=== PATIENT | male | born 1930 | race Caucasian/White ===

== ENCOUNTER 2017-02-09 08:35 | Inpatient (IN) | payer OTHER ==
[~2017-02-09] VITALS: Ht 180.3 cm; Wt 56.7 kg
--- NOTE | 2017-02-09 07:10 | NUR ---
OPENING NOTES RECEIVED REPORT FROM DAY SHIFT NURSE AT BEDSIDE. IV PATENT, FLUIDS RUNNING. NO SIGNS OR SYMPTOMS OF DISTRESS NOTED. FAMILY AT BEDSIDE. BED IN LOWEST POSITION, CALL LIGHT WITHIN REACH.
--- NOTE | 2017-02-09 07:10 | NUR ---
OPENING NOTES RE[facility] PATENT IV WITH FLUIDS RUNNING. PATIENT SHOWED NO SIGNS OR SYMPTOMS OF DISTRESS. FAMILY AT BEDSIDE. BED IN LOWEST POSITION, CALL LIGHT WITHIN REACH. Addendum: 02/10/17 at 0033 by Hilda Gross RN MEANT TO PUT [phone]
[2017-02-09 08:35] VITALS: BP 92/59; PULSE 67; RESP 19; TEMP 98.5; O2SAT 99
--- NOTE | 2017-02-09 08:35 | NUR ---
BROUGHT IMMEDIATELY BACK TO BED #6 AND TRIAGED. REPORT GIVEN TO MONICA
[2017-02-09] MEDS ORDERED: ASPIRIN 81 MG TAB.CHEW PO ONE (08:45)
--- NOTE | 2017-02-09 08:51 | NUR ---
c/o left chest pain, sharp,intermittent, non-radiating, 8/10 since 6am this morning, [id number], denies sob.no distress noted.
--- NOTE | 2017-02-09 08:51 | NUR ---
Placed on electrotype caster, blood pressure machine and pulse oximeter. To gown for exam. Side rails up.
--- NOTE | 2017-02-09 08:52 | NUR ---
ER at bedside examining patient.
--- NOTE | 2017-02-09 08:54 | NUR ---
# 20 gauge angiocath placed to LAC. Use of asceptic technique. Opsite placed over site. Blood return noted. Blood for lab drawn from site. Flushed with 10 cc of normal saline. No evidence of infiltration noted. Patient tolerated well.
[2017-02-09 08:58] LABS: BASOPHILS # (AUTO) 0.3 K/uL (0.0-0.2); BASOPHILS % (AUTO) 1.9 % (0.0-2.0); EOSINOPHILS % (AUTO) 0.3 % (0.0-4.0); HEMOGLOBIN 10.7 g/dL (14.0-18.0); LYMPHOCYTES # (AUTO) 1.2 K/uL (1.0-5.5); LYMPHOCYTES % (AUTO) 7.6 % (20.5-51.5); MEAN CORPUSCULAR HEMOGLOBIN 34 pg (27-31); MEAN CORPUSCULAR HGB CONC 35 % (32-36); MEAN CORPUSCULAR VOLUME 99 fL (79.0-98.0); MONOCYTES # (AUTO) 0.9 K/uL (0.0-1.0); MONOCYTES % (AUTO) 5.9 % (1.7-9.3); NEUTROPHILS % (AUTO) 84.3 % (40.0-70.0); PLATELET COUNT (AUTO) 190 K/uL (130-430); RED BLOOD CELL COUNT(AUTO) 3.12 MIL/uL (4.2-6.2); RED CELL DISTRIBUTION WIDTH 12.4 % (9.0-15.0); WHITE BLOOD COUNT (AUTO) 15.4 K/uL (4.8-10.8)
[2017-02-09] MEDS ORDERED: D5/0.45 NS 1,000 ML IV ONE (09:00)
[2017-02-09] MEDS ORDERED: ASPIRIN 81 MG TAB.CHEW ONE (09:04)
[2017-02-09 09:08] LABS: ANION GAP 6 (5-15); CALCIUM 9.1 mg/dL (8.4-11.0); CHLORIDE 103 mmol/L (98-107); CREATININE 1.48 mg/dL (0.55-1.30); GLUCOSE 105 mg/dL (70-99); POTASSIUM 3.8 mmol/L (3.5-5.1); SODIUM SERUM 138 mmol/L (136-145); UREA NITROGEN, BLOOD 24 mg/dL (8-21)
--- NOTE | 2017-02-09 09:10 | NUR ---
NOTES PATIENT RESTING COMFORTABLY. PATIENT DENIES PAIN. IV SALINE LOCK. NO SIGNS OR SYMPTOMS OF DISTRESS NOTED. PLAN OF CARE DISCUSSED. BED IN LOWEST POSITION, CALL LIGHT WITHIN REACH. WILL CONTINUE TO MONITOR. Addendum: 02/10/17 at 0033 by Hilda Gross RN MEANT TO PUT [phone]
[2017-02-09 09:13] LABS: ALANINE AMINOTRANSFERASE 22 U/L (12-78); ALBUMIN 3.8 g/dL (3.4-4.8); ASPARTATE AMINOTRANSFERASE 18 U/L (10-37); TOTAL BILIRUBIN 0.7 mg/dL (0.0-1.0); TOTAL PROTEIN, SERUM 7.5 g/dL (6.4-8.3)
--- NOTE | 2017-02-09 09:43 | NUR ---
resting in bed,denies any pain and disconfort.
--- NOTE | 2017-02-09 10:04 | NUR ---
pt can't recall his home medication, unable to do medication reconcil at this time.
--- NOTE | 2017-02-09 10:04 | NUR ---
admit orders received from Dr Vigil
--- NOTE | 2017-02-09 10:05 | NUR ---
Patient will be admitted to care of Dr caldwell. Admitted to unit. Will go to room . Belongings list completed. Summary report printed. Report given to .
--- NOTE | 2017-02-09 10:22 | NUR ---
ADMISSION NOTE Received patient from ER via gurney. Patient admitted with diagnosis of Chest Pain. Patient is awake, alert, oriented X 4. Patient oriented to hospital room, call light, toileting, pain management and safety-teach back done. Patient informed that Angel will be his nurse and that their room number is 112B. Personal belongings checked and Belongings List documented. Call light within reach.
[2017-02-09 10:32] VITALS: BP 110/69; PULSE 62; RESP 18; TEMP 97.4; O2SAT 100
--- NOTE | 2017-02-09 10:36 | NUR ---
CONSULT C ARDIO CHEST PAIN DR CEDENO [phone] S/[facility] OFF[facility] @ [phone]
--- NOTE | 2017-02-09 11:10 | NUR ---
NOTES PATIENT SLEEPING. VISIBLE RISE AND FALL OF THE CHEST NOTED. NO SIGNS OR SYMPTOMS OF DISTRESS NOTED. BED IN LOWEST POSITION, CALL LIGHT WITHIN REACH. WILL CONTINUE TO MONITOR. Addendum: 02/10/17 at 0032 by Hilda Gross RN WRONG TIME MEANT TO PUT [phone]
[2017-02-09] MEDS ORDERED: NIAC250T18 PO (13:49)
[2017-02-09] MEDS ORDERED: ALLO100T PO (13:49)
[2017-02-09] MEDS ORDERED: ASPI-859 PO (13:49)
[2017-02-09] MEDS ORDERED: BENA5TAB2 PO (13:49)
[2017-02-09] MEDS ORDERED: CYAN250014 PO (13:49)
[2017-02-09] MEDS ORDERED: VIT1CAPS27 PO (13:49)
[2017-02-09] MEDS ORDERED: FERR-57 PO (13:49)
[2017-02-09] MEDS ORDERED: SIMV80TA2 PO (13:49)
[2017-02-09] MEDS ORDERED: AMIO200T2 PO (13:49)
[2017-02-09] MEDS ORDERED: CHOL200010 PO (13:49)
[2017-02-09] MEDS ORDERED: OMEG100037 PO (13:49)
[2017-02-09] MEDS ORDERED: MAGN250T31 PO (13:49)
[2017-02-09] MEDS ORDERED: FOLI0.8T PO (13:49)
--- NOTE | 2017-02-09 14:00 | NUR ---
NOTES PT IN BED, NO C/O PAIN, NO SOB, FAMILY AT BEDSIDE.
--- NOTE | 2017-02-09 16:05 | NUR ---
PT IN BED, FAMILY AT BEDSIDE, NO C/O CHEST PAIN THIS TIME, BUT ATTENDED TO PT EARLIER FOR C/O OF INTERMITTENT SUDDEN CHEST PAIN WHICH LAST FOR ONLY FEW SECONDS. WILL CONT TO MONITOR. OTHERWISE PT IS STABLE.
[2017-02-09 16:31] VITALS: BP 146/89; PULSE 62; RESP 18; TEMP 98.5; O2SAT 97
--- NOTE | 2017-02-09 17:06 | NUR ---
Notes Dr. Guido has been made aware of patient's complaint of intermittent chest pain. No new orders given. Dr. Guido stated he will see patient next.
--- NOTE | 2017-02-09 17:57 | NUR ---
NOTES - SPOKE WITH DR CORTES ALVAREZ PT'S MED REC, AND C/O CHEST PAIN, ASK MD IF HE WOULD CONSIDER NITRO, MD SAID HE WILL DO IT IN THE COMPUTER, NO NEW ORDER GIVEN.
[2017-02-09] MEDS ORDERED: MORPHINE 2 MG/ML INJ. SYRINGE IVP PRN (18:00)
[2017-02-09] MEDS ORDERED: ALLOPURINOL 100 MG TABLET (ZYLOPRIM) PO PRN (18:00)
[2017-02-09] MEDS ORDERED: MORPHINE 4 MG/ML INJ. SYRINGE IVP PRN (18:00)
[2017-02-09] MEDS ORDERED: ACETAMINOPHEN 325 MG TABLET PO PRN (18:00)
--- NOTE | 2017-02-09 18:50 | NUR ---
READING INTERVENTION TEACHER SEEN PT. FAMILY AT BEDSIDE. PT IS STABLE.
--- NOTE | 2017-02-09 19:10 | NUR ---
OPENING NOTES RECEIVED REPORT FROM DAYSHIFT NURSE AT BEDSIDE. PATENT IV WITH FLUIDS RUNNING. PATIENT SHOWED NO SIGNS OR SYMPTOMS OF DISTRESS. FAMILY AT BEDSIDE. BED IN LOWEST POSITION, CALL LIGHT WITHIN REACH.
[2017-02-09 20:00] VITALS: BP 146/69; PULSE 60; RESP 22; TEMP 99.3; O2SAT 99
[2017-02-09] MEDS ORDERED: KETOROLAC TROMETHAMINE 15 MG VIAL IVP SCH (20:00)
--- NOTE | 2017-02-09 20:15 | NUR ---
NOTES ORDERED FLUIDS D/C. FLUIDS D/C AT THIS TIME.
[2017-02-09] MEDS ORDERED: SIMVASTATIN 40 MG TABLET PO SCH (21:00)
--- NOTE | 2017-02-09 21:10 | NUR ---
NOTES PATIENT RESTING COMFORTABLY. PATIENT DENIES PAIN. IV SALINE LOCK. NO SIGNS OR SYMPTOMS OF DISTRESS NOTED. PLAN OF CARE DISCUSSED. BED IN LOWEST POSITION, CALL LIGHT WITHIN REACH. WILL CONTINUE TO MONITOR.
[2017-02-09] MEDS ORDERED: KETOROLAC TROMETHAMINE 15 MG VIAL IVP PRN (22:15)
--- NOTE | 2017-02-09 23:10 | NUR ---
NOTES PATIENT SLEEPING. VISIBLE RISE AND FALL OF THE CHEST NOTED. NO SIGNS OR SYMPTOMS OF DISTRESS NOTED. BED IN LOWEST POSITION, CALL LIGHT WITHIN REACH. WILL CONTINUE TO MONITOR.
[2017-02-10] VITALS: BP 156/71; PULSE 60; RESP 20; TEMP 99.6; O2SAT 97
--- NOTE | 2017-02-10 01:10 | NUR ---
NOTES PATIENT SLEEPING COMFORTABLY. VISIBLE RISE AND FALL OF THE CHEST NOTED. NO SIGNS OR SYMPTOMS OF DISTRESS NOTED. BED IS IN LOWEST POSITION, CALL LIGHT WITHIN REACH. WILL CONTINUE TO MONITOR.
--- NOTE | 2017-02-10 03:10 | NUR ---
NOTES PATIENT IS RESTING, SITTING UP IN BED. PATIENT DENIES PAIN. NO SIGNS OR SYMPTOMS OF DISTRESS NOTED. BED IN LOWEST POSITION, CALL LIGHT WITHIN REACH. WILL CONTINUE TO MONITOR.
[2017-02-10 03:32] LABS: ANION GAP 7 (5-15); CALCIUM 8.8 mg/dL (8.4-11.0); CHLORIDE 104 mmol/L (98-107); CREATININE 1.38 mg/dL (0.55-1.30); GLUCOSE 107 mg/dL (70-99); POTASSIUM 3.8 mmol/L (3.5-5.1); SODIUM SERUM 140 mmol/L (136-145); UREA NITROGEN, BLOOD 22 mg/dL (8-21)
[2017-02-10 04:00] VITALS: BP 131/70; PULSE 53; RESP 20; TEMP 96.8; O2SAT 96
--- NOTE | 2017-02-10 05:10 | NUR ---
NOTES PATIENT IS SLEEPING PEACEFULLY. VISIBLE RISE AND FALL OF THE CHEST NOTED. NO SIGNS OR SYMPTOMS OF DISTRESS NOTED. BED IN LOWEST POSITION, CALL LIGHT WITHIN REACH. WILL CONTINUE TO MONITOR.
[2017-02-10 06:21] LABS: BASOPHILS % (AUTO) 0.1 % (0.0-2.0); EOSINOPHILS # (AUTO) 0.2 K/uL (0.0-0.4); HEMOGLOBIN 9.1 g/dL (14.0-18.0); LYMPHOCYTES # (AUTO) 1.6 K/uL (1.0-5.5); LYMPHOCYTES % (AUTO) 16.9 % (20.5-51.5); MEAN CORPUSCULAR HEMOGLOBIN 34 pg (27-31); MEAN CORPUSCULAR HGB CONC 34 % (32-36); MEAN CORPUSCULAR VOLUME 100 fL (79.0-98.0); MONOCYTES # (AUTO) 0.9 K/uL (0.0-1.0); MONOCYTES % (AUTO) 9.3 % (1.7-9.3); NEUTROPHILS # (AUTO) 6.7 K/uL (1.8-7.7); NEUTROPHILS % (AUTO) 71.7 % (40.0-70.0); PLATELET COUNT (AUTO) 158 K/uL (130-430); RED CELL DISTRIBUTION WIDTH 12.3 % (9.0-15.0); WHITE BLOOD COUNT (AUTO) 9.4 K/uL (4.8-10.8)
--- NOTE | 2017-02-10 06:42 | NUR ---
CLOSING NOTES PATIENT IS SLEEPING COMFORTABLY, NO SIGNS OR SYMPTOMS OF DISTRESS NOTED. VISIBLE RISE AND FALL OF THE CHEST. BED IN LOWEST POSITION, CALL LIGHT WITHIN REACH. WILL ENDORSE CARE TO DAY SHIFT NURSE.
--- NOTE | 2017-02-10 07:45 | NUR ---
INITIAL NOTE PATIENT IS RESTING COMFORTABLY IN BED, NO COMPLAINTS OF ANY PAIN OR DISCOMFORT, ASSESSMENT COMPLETE, 20 GAUGE, IV SITE NOTED OF LEFT AC, EDUCATED PATIENT ON USE OF CALL KELSEY, PATIENT VERBALIZED UNDERSTANDING, BED IN LOWEST POSITION, CALL KELSEY IN PATIENT'S HAND, TWO SIDE RAILS UP, WILL CONTINUE TO MONITOR PATIENT.
[2017-02-10 08:00] VITALS: BP 161/72; PULSE 63; RESP 18; TEMP 98; O2SAT 97
[2017-02-10] MEDS ORDERED: NIACIN 250 MG TABLET PO SCH (09:00)
[2017-02-10] MEDS ORDERED: ASPIRIN 325 MG TABLET (ECOTRIN) PO SCH (09:00)
[2017-02-10] MEDS ORDERED: NIACIN 500 MG CAPSULE.SA PO SCH (09:00)
[2017-02-10] MEDS ORDERED: FERROUS SULFATE 325 MG TABLET.DR PO SCH (09:00)
[2017-02-10] MEDS ORDERED: BENAZEPRIL HCL 10 MG TABLET (LOTENSIN) PO SCH (09:00)
[2017-02-10] MEDS ORDERED: AMIODARONE HCL 200 MG TABLET PO SCH (09:00)
[2017-02-10] MEDS ORDERED: ASPIRIN 81 MG TABLET(ECOTRIN) PO SCH (09:00)
[2017-02-10] MEDS ORDERED: IOHEXOL 350 mgI/mL, 150 ML INFUS..BTL IV ONE (09:29)
--- NOTE | 2017-02-10 09:30 | NUR ---
MEDICATION PASS GAVE PATIENT MORNING MEDICATIONS, EDUCATED PATIENT ON POTENTIAL SIDE EFFECTS, PATIENT VERBALIZED UNDERSTANDING, CALL KELSEY LEFT IN PATIENT' HAND, BED IN LOWEST POSITION, TWO SIDE RAILS UP, WILL CONTINUE TO MONITOR PATIENT
--- NOTE | 2017-02-10 09:30 | NUR ---
CT SCAN PATIENT IS OFF UNIT FOR CT SCAN, PATIENT IN STABLE CONDITION
--- NOTE | 2017-02-10 09:50 | NUR ---
PATIENT BACK ON UNIT PATIENT IS BACK FROM CT SCAN, PATIENT IS STABLE, FAMILY AT BEDSIDE, BED IN LOWEST POSITION, CALL KELSEY WITHIN REACH, WILL CONTINUE TO MONITOR
--- NOTE | 2017-02-10 10:30 | NUR ---
DR KOLB PAGED REGARDING DDIMER AND CTA RESULTS
--- NOTE | 2017-02-10 11:18 | NUR ---
DR KOLB CALL BACK RESULTS GIVEN FOR DDIMER AND CTA, DR KOLB ORDERED STAT VENOUS DOPPLER OF THE BILATERAL LOWER EXTREMITIES, NOTIFIED CHIROPRACTOR SOLE PRACTITIONER OF NEW ORDERS, WILL FOLLOW UP.
--- NOTE | 2017-02-10 11:30 | NUR ---
RN ROUNDS PATIENT IS SITTING UP IN BED, FAMILY IS AT BEDSIDE, NO COMPLAINTS OF PAIN OR DISCOMFORT, INSTRUCTED PATIENT TO USE CALL KELSEY IF ASSISTANCE IS NEEDED, PATIENT VERBALIZED UNDERSTANDING, BED IN LOWEST POSITION, CALL KELSEY WITHIN PATIENT'S REACH, TWO SIDE RAILS UP, FALL PRECAUTIONS IN PLACE, WILL CONTINUE TO MONITOR
[2017-02-10 12:00] VITALS: BP 129/56; PULSE 60; RESP 18; TEMP 97.3; O2SAT 98
[2017-02-10 13:25] VITALS: Ht 180.3 cm; Wt 56.7 kg
--- NOTE | 2017-02-10 13:51 | NUR ---
VENOUS DOPPLER PATIENT RECEIVING VENOUS DOPPLER AT THIS TIME, TOLERATING WELL AT THIS TIME, WILL CONTINUE TO MONITOR.
--- NOTE | 2017-02-10 14:00 | NUR ---
RN ROUNDS PATIENT IS SITTING UP IN CHAIR, FAMILY MEMBERS AT BEDSIDE, PATIENT DENIES ANY PAIN OR DISCOMFORT, INSTRUCTED PATIENT IF ASSISTANCE IS NEEDED TO USE CALL KELSEY, PATIENT VERBALIZED UNDERSTANDING, FALL PRECAUTIONS IN PLACE, WILL CONTINUE TO MONITOR PATIENT.
--- NOTE | 2017-02-10 14:45 | NUR ---
Dr. Musa Vigil paged to inform him of venous doppler results, patient made aware that Dr. Vigil is paged.
--- NOTE | 2017-02-10 15:45 | NUR ---
D/C Patient Patient given medication reconciliation form and D/C instructions. Exit Care provided. Patient verbalized understanding. MD discussed with patient the results and treatment provided. Ambulatory with steady gait for discharge to home. Patient in stable condition, ID band removed. IV catheter removed, intact and dressing applied, no active bleeding. Patient educated on pain management. All belongings sent with patient. Dr. Vigil was at nurses station, informed of venous doppler ultra sound results.
--- NOTE | 2017-02-17 13:29 | NUR ---
Discharge Follow Up Phone Call UPHOLSTERY REPAIRER phoned patient, . Patient stated he was doing well and was back to baseline. He had a follow up appointment with his PCP yesterday, 02/16/17. He has not had any follow up regarding the recommended colonoscopy and EGD as his PCP is awaiting the paperwork from the hospital and will make the appointments after that. Patient stated he had no questions or concerns. No further follow up calls needed.
== END 2017-02-10 15:43 | disposition home or self-care (01) | DRG 206 ==
LOC: SED 08:35 → SMU 10:00 → STU 10:08
PROVIDERS: ADMIT Internal Medicine Hospice and Palliative Medicine; ATTEND Internal Medicine Hospice and Palliative Medicine
DX: M94.0 Chondrocostal junction syndrome [Tietze] (principal); N17.9 Acute kidney failure, unspecified; R07.89 Other chest pain; I25.10 Atherosclerotic heart disease of native coronary artery without angina pectoris; B00.1 Herpesviral vesicular dermatitis; E78.5 Hyperlipidemia, unspecified; Z98.61 Coronary angioplasty status; Z88.0 Allergy status to penicillin
CPT/HCPCS: 36415; 71010; 71275; 80048; 80053; 83880; 84484; 85025; 85379; 85610-TC; 85730-TC; 93005; 93306; 93970; 99285; J1885; Q9967